=== PATIENT | female | born 1935 | race Caucasian/White ===

== ENCOUNTER → 2018-07-16 | Outpatient (CLI) | payer MEDICARE, BC ==
--- NOTE | 2018-07-16 08:19 | US ---
EXAMINATION TYPE: US liver DATE OF EXAM: 07/16/2018 COMPARISON: NONE CLINICAL HISTORY: R94.5 Abnormal Liver Function test; gallbladder removed EXAM MEASUREMENTS: Liver Length: 16.4 cm Gallbladder Wall: surgically removed CBD: 1.2 cm Right Kidney: 10.4 x 5.8 x 4.0 cm Pancreas: hyperechoic Liver: fatty as is hyperechoic to right renal cortex; prominent bile ducts seen in right lobe Gallbladder: surgically removed Evidence for sonographic Palacio's sign: no CBD: dilated greater than normal measure of 1.0cm post cholecystectomy and for 8th decade of life Right Kidney: No hydronephrosis or masses seen IMPRESSION: 1. Probable hepatic steatosis.
== END | disposition home or self-care (01) ==
LOC: RADUSWWP 07:30
PROVIDERS: ATTEND Internal Medicine
DX: R94.4 Abnormal results of kidney function studies (principal)
CPT/HCPCS: 76705

== ENCOUNTER 2018-09-19 17:46 | Inpatient (IN) | payer MEDICARE, BC ==
[2018-09-19] MEDS ORDERED: SODIUM CHLORIDE 0.9% 1,000 ML IV STA ×2 (18:29→18:30)
--- NOTE | 2018-09-19 18:37 | ED ---
Extremity Problem HPI - General Chief complaint: Extremity Problem,Nontraumatic Stated complaint: Rohan foot pain Time Seen by Provider: 09/19/18 18:00 Source: patient, RN notes reviewed Mode of arrival: EMS Limitations: no limitations - History of Present Illness Initial comments: This is a 83-year-old female history of gout who states she's been in bed for the past 7 days with inability weight-bear due to foot pain. She states she had similar episodes of this in the past. The denies any overt fevers chills or sweats she states her feet and ankles to feel warmer. He has complaints of pain to the left second toe she states she now also has pain to lateral right malleolus area. She denies any trauma. She believes it may be her gout though she's been told she could not have it on both sides. She denies any other symptoms at this time. MD Complaint: extremity pain - Related Data Home Medications Medication Instructions Recorded Confirmed Bisoprolol-Hctz 2.5-6.25 mg [Ziac 1 tab PO HS 12/12/14 09/19/18 2.5-6.25] Kelp 1 tab PO DAILY 12/12/14 09/19/18 Vitamin B Complex 1 cap PO DAILY 12/12/14 09/19/18 traMADol HCl [Ultram] 50 mg PO DAILY PRN 12/12/14 09/19/18 Calcium Carbonate/Vitamin D3 1 tab PO DAILY 12/19/15 09/19/18 [Calcium 600 + Vit D Tablet] Glucosam/Tk-Msm1/C/Fidel/Bosw 1 tab PO DAILY 12/19/15 09/19/18 [Glucosamine-Chondroitin Tablet] Multivit-Min/Iron/Folic/Lutein 1 tab PO DAILY 12/19/15 09/19/18 [Centrum Silver Women Tablet] Zinc 50 mg PO DAILY 12/19/15 09/19/18 Allopurinol [Zyloprim] 100 mg PO DAILY 09/19/18 09/19/18 Aspirin EC [Ecotrin Low Dose] 81 mg PO DAILY 09/19/18 09/19/18 Gabapentin [Neurontin] 100 mg PO BID 09/19/18 09/19/18 Magnesium 200 mg PO DAILY 09/19/18 09/19/18 [place]-3 Fatty Acids [[place]-3] 1,000 mg PO DAILY 09/19/18 09/19/18 Tumeric (Unknown Dose) 1 tab PO DAILY 09/19/18 09/19/18 Allergies Allergy/AdvReac Type Severity Reaction Status Date / Time codeine Allergy Chest Pain Verified 09/19/18 18:34 oxybutynin chloride Allergy Abdominal Verified 09/19/18 18:34 [From Ditropan] Pain Review of Systems ROS Statement: Those systems with pertinent positive or pertinent negative responses have been documented in the HPI. ROS Other: All systems not noted in ROS Statement are negative. Past Medical History Past Medical History: Diabetes Mellitus, Eye Disorder, GERD/Reflux, Hearing Disorder / Deafness, Hyperlipidemia, Hypertension, Memory Impairment, Musculoskeletal Disorder, Osteoarthritis (OA), Skin Disorder, Thyroid Disorder Additional Past Medical History / Comment(s): SOB W/ ACTIVITY. VERTIGO. MAC DEGENERATION. GOUT. borderline diabetic, NEUROPATHY FEET. GETS YEAST IN SKIN FOLDS OCC. History of Any Multi-Drug Resistant Organisms: None Reported Past Surgical History: Appendectomy, Cholecystectomy, Hysterectomy, Joint Replacement Additional Past Surgical History / Comment(s): ROHAN TOTAL KNEES replaced. HX SURG BREAST INFECTION, krista placed in right humerus Past Anesthesia/Blood Transfusion Reactions: No Reported Reaction, Motion Sickness Past Psychological History: No Psychological Hx Reported Smoking Status: Former smoker Past Alcohol Use History: Occasional, Rare Past Drug Use History: None Reported - Past Family History Mother Additional Family Medical History / Comment(s): "alcoholic", and stomach ulcers Sister(s) Family Medical History: AICD/Pacemaker, Blood Disorder, Deep Vein Thrombosis ( DVT) Additional Family Medical History / Comment(s): one sis has afib & blood clots, one other sis has blood clots as well Father Family Medical History: Cancer, Dementia General Exam - General Exam Comments Initial Comments: This is a well-developed well-nourished awake alert oriented history female Limitations: no limitations General appearance: alert, in no apparent distress Head exam: Present: atraumatic, normocephalic, normal inspection Eye exam: Present: normal appearance, PERRL, EOMI. Absent: scleral icterus, conjunctival injection, periorbital swelling ENT exam: Present: mucous membranes dry Neck exam: Present: normal inspection. Absent: tenderness, meningismus, lymphadenopathy Respiratory exam: Present: normal lung sounds bilaterally. Absent: respiratory distress, wheezes, rales, rhonchi, stridor Cardiovascular Exam: Present: regular rate, normal rhythm, normal heart sounds. Absent: systolic murmur, diastolic murmur, rubs, gallop, clicks GI/Abdominal exam: Present: soft, normal bowel sounds. Absent: distended, tenderness, guarding, rebound, rigid Extremities exam: Present: full ROM, tenderness, normal capillary refill, other (Examination left lower sternum he demonstrates some erythema and increased elevated temperature today dorsal aspect of the left foot also erythema seen over the great toe and second toe. No drainage seen anywhere. No lymphangitis. Examination right foot and ankle reveals tenderness and some erythema increased temperature to the lateral malleolus on the right. Crepitation or step-off.). Absent: pedal edema, joint swelling, calf tenderness Back exam: Present: normal inspection Neurological exam: Present: alert, oriented X3, CN II-XII intact Psychiatric exam: Present: normal affect, normal mood Skin exam: Present: warm, dry, intact, normal color. Absent: rash Course Vital Signs 09/19/18 09/19/18 09/19/18 17:52 19:35 21:08 Temperature 99.9 F H 100.1 F H Pulse Rate 93 93 Respiratory 18 18 18 Rate Blood Pressure 153/92 125/61 O2 Sat by Pulse 94 L 96 Oximetry Medical Decision Making - Medical Decision Making I did discuss the findings the patient family and with Dr. Mckeon. Patient will be admitted he will be placed on IV antibiotics and anti-inflammatories - Lab Data Result diagrams: 09/19/18 20:21 09/19/18 20:21 Lab Results 09/19/18 09/19/18 09/19/18 Range/Units 20:21 20:21 20:21 WBC 15.3 H (3.8-10.6) k/uL RBC 5.14 (3.80-5.40) m/uL Hgb 14.3 (11.4-16.0) gm/dL Hct 44.4 (34.0-46.0) % MCV 86.3 (80.0-100.0) fL MCH 27.9 (25.0-35.0) pg MCHC 32.3 (31.0-37.0) g/dL RDW 13.6 (11.5-15.5) % Plt Count 264 (150-450) k/uL Neutrophils % 83 % Lymphocytes % 8 % Monocytes % 6 % Eosinophils % 1 % Basophils % 0 % Neutrophils # 12.7 H (1.3-7.7) k/uL Lymphocytes # 1.3 (1.0-4.8) k/uL Monocytes # 1.0 (0-1.0) k/uL Eosinophils # 0.1 (0-0.7) k/uL Basophils # 0.1 (0-0.2) k/uL Sodium 138 (137-145) mmol/L Potassium 4.1 (3.5-5.1) mmol/L Chloride 100 (98-107) mmol/L Carbon Dioxide 28 (22-30) mmol/L Anion Gap 10 mmol/L BUN 24 H (7-17) mg/dL Creatinine 1.13 H (0.52-1.04) mg/dL Est GFR (CKD-EPI)AfAm 52 (>60 ml/min/1.73 sqM) Est GFR (CKD-EPI)NonAf 45 (>60 ml/min/1.73 sqM) Glucose 121 H (74-99) mg/dL Plasma Lactic Acid Tim 1.1 (0.7-2.0) mmol/L Uric Acid 6.4 (3.7-7.4) mg/dL Calcium 9.4 (8.4-10.2) mg/dL Magnesium 2.2 (1.6-2.3) mg/dL Total Bilirubin 1.7 H (0.2-1.3) mg/dL AST 60 H (14-36) U/L ALT 94 H (9-52) U/L Alkaline Phosphatase 88 (38-126) U/L Total Creatine Kinase (30-135) U/L CK-MB (CK-2) (0.0-2.4) ng/mL CK-MB (CK-2) Rel Index C-Reactive Protein 191.1 H (<10.0) mg/L Total Protein 7.0 (6.3-8.2) g/dL Albumin 3.8 (3.5-5.0) g/dL 09/19/18 Range/Units 20:21 WBC (3.8-10.6) k/uL RBC (3.80-5.40) m/uL Hgb (11.4-16.0) gm/dL Hct (34.0-46.0) % MCV (80.0-100.0) fL MCH (25.0-35.0) pg MCHC (31.0-37.0) g/dL RDW (11.5-15.5) % Plt Count (150-450) k/uL Neutrophils % % Lymphocytes % % Monocytes % % Eosinophils % % Basophils % % Neutrophils # (1.3-7.7) k/uL Lymphocytes # (1.0-4.8) k/uL Monocytes # (0-1.0) k/uL Eosinophils # (0-0.7) k/uL Basophils # (0-0.2) k/uL Sodium (137-145) mmol/L Potassium (3.5-5.1) mmol/L Chloride (98-107) mmol/L Carbon Dioxide (22-30) mmol/L Anion Gap mmol/L BUN (7-17) mg/dL Creatinine (0.52-1.04) mg/dL Est GFR (CKD-EPI)AfAm (>60 ml/min/1.73 sqM) Est GFR (CKD-EPI)NonAf (>60 ml/min/1.73 sqM) Glucose (74-99) mg/dL Plasma Lactic Acid Tim (0.7-2.0) mmol/L Uric Acid (3.7-7.4) mg/dL Calcium (8.4-10.2) mg/dL Magnesium (1.6-2.3) mg/dL Total Bilirubin (0.2-1.3) mg/dL AST (14-36) U/L ALT (9-52) U/L Alkaline Phosphatase (38-126) U/L Total Creatine Kinase 71 (30-135) U/L CK-MB (CK-2) 0.5 (0.0-2.4) ng/mL CK-MB (CK-2) Rel Index 0.7 C-Reactive Protein (<10.0) mg/L Total Protein (6.3-8.2) g/dL Albumin (3.5-5.0) g/dL - Radiology Data Radiology results: report reviewed (I did review the imaging and report no acute findings), image reviewed Disposition Clinical Impression: Cellulitis of right ankle, Foot pain, bilateral, Febrile illness, acute Disposition: ADMITTED IP TO THIS HOSP Condition: Serious Referrals: Danii Mckeon MD [Primary Care Provider] - 1-2 days
--- NOTE | 2018-09-19 19:54 | XR ---
EXAMINATION TYPE: XR foot limited bilateral DATE OF EXAM: 09/19/2018 COMPARISON: NONE HISTORY: Foot pain and swelling TECHNIQUE: 2 views each foot FINDINGS: There are bilateral plantar calcaneal spurs. There is left-sided Achilles calcaneal spurrin g. There is mild left-sided hallux valgus. Metatarsals are intact. There is spurring at the tarsometa tarsal joints bilaterally. IMPRESSION: Osteoarthritis. No fracture.
[2018-09-19 20:42] LABS: Basophils # (A) 0.1 k/uL (0-0.2); Basophils % (A) 0 %; Eosinophils # (A) 0.1 k/uL (0-0.7); Eosinophils % (A) 1 %; HCT 44.4 % (34.0-46.0); HGB 14.3 gm/dL (11.4-16.0); Lymphocytes # (A) 1.3 k/uL (1.0-4.8); Lymphocytes % (A) 8 %; MCH 27.9 pg (25.0-35.0); MCHC 32.3 g/dL (31.0-37.0); MCV 86.3 fL (80.0-100.0); Mean Platelet Volume 7.2; Monocytes % (A) 6 %; Neutrophils # (A) 12.7 k/uL (1.3-7.7); Neutrophils % (A) 83 %; Platelet Count 264 k/uL (150-450); RBC 5.14 m/uL (3.80-5.40); RDW 13.6 % (11.5-15.5); WBC 15.3 k/uL (3.8-10.6)
[2018-09-19 21:02] LABS: Albumin 3.8 g/dL (3.5-5.0); Calcium 9.4 mg/dL (8.4-10.2); Magnesium 2.2 mg/dL (1.6-2.3); Potassium 4.1 mmol/L (3.5-5.1); Total Bilirubin 1.7 mg/dL (0.2-1.3); Uric Acid 6.4 mg/dL (3.7-7.4)
[2018-09-19 21:11] LABS: Creatine Kinase MB 0.5 ng/mL (0.0-2.4)
[2018-09-19 21:15] LABS: C Reactive Protein 191.1 mg/L (<10.0)
[2018-09-19] MEDS ORDERED: ACETAMINOPHEN TAB 325 MG TAB PO PRN (21:50)
[2018-09-19] MEDS ORDERED: ONDANSETRON 4 MG/2 ML VIAL IVP PRN (21:50)
[2018-09-19] MEDS ORDERED: NALOXONE 0.4 MG/ML 1 ML VIAL IV PRN (21:50)
[2018-09-19] MEDS ORDERED: VANCOMYCIN IV PER PHARMACY 1 EACH MISC MISCELLANE PRN (21:55)
[2018-09-19] MEDS ORDERED: VANCOMYCIN 1,500 MG in SODIUM CHLORIDE 0.9% 250 ML IVPB SCH (23:15)
[2018-09-20] MEDS: PIPERACILLIN-TAZOBACTAM 3.375 GM in SODIUM CHLORIDE 0.9% 100 ML IVPB SCH ×3 (01:00→16:30)
[2018-09-20] MEDS: HYDROmorphone 1 MG/ML 1 ML SYRINGE IVP PRN ×5 (02:04→22:56)
[2018-09-20 08:08] LABS: Basophils # (A) 0.1 k/uL (0-0.2); Basophils % (A) 1 %; Eosinophils # (A) 0.1 k/uL (0-0.7); Eosinophils % (A) 1 %; HCT 40.4 % (34.0-46.0); HGB 13.1 gm/dL (11.4-16.0); Lymphocytes # (A) 1.4 k/uL (1.0-4.8); Lymphocytes % (A) 13 %; MCHC 32.3 g/dL (31.0-37.0); MCV 86.5 fL (80.0-100.0); Monocytes # (A) 0.9 k/uL (0-1.0); Monocytes % (A) 8 %; Neutrophils # (A) 8.1 k/uL (1.3-7.7); Neutrophils % (A) 76 %; Platelet Count 232 k/uL (150-450); RBC 4.67 m/uL (3.80-5.40); RDW 13.4 % (11.5-15.5); WBC 10.7 k/uL (3.8-10.6)
[2018-09-20 08:52] LABS: Albumin 3.1 g/dL (3.5-5.0); Calcium 8.9 mg/dL (8.4-10.2); Potassium 4.3 mmol/L (3.5-5.1); Total Bilirubin 2.2 mg/dL (0.2-1.3); Total Protein 6.1 g/dL (6.3-8.2)
[2018-09-20] MEDS ORDERED: FAMOTIDINE 20 MG TAB PO SCH (09:00)
[2018-09-20] MEDS ORDERED: ALLOPURINOL 100 MG TAB PO SCH (09:00)
[2018-09-20] MEDS ORDERED: NON-FORMULARY DRUG (Omega-3 Fatty Acids [Omega-3] 1,000 MG) PO SCH (09:00)
[2018-09-20] MEDS ORDERED: NON-FORMULARY DRUG (Vitamin B Complex [Vitamin B Complex] 1 CAP) PO SCH (09:00)
[2018-09-20] MEDS: ASPIRIN 81 MG PO SCH (09:07)
[2018-09-20] MEDS: HEPARIN SODIUM,PORCINE 5,000 UNIT/ML 1 ML VIAL SQ SCH ×2 (09:07→21:07)
[2018-09-20] MEDS: GABAPENTIN 100 MG CAP PO SCH ×2 (09:07→21:07)
[2018-09-20] MEDS: MULTIVITAMINS, THERA 1 EACH TAB PO SCH (09:08)
[2018-09-20] MEDS: ZINC SULFATE 220 MG CAP PO SCH (09:08)
[2018-09-20] MEDS: CALCIUM CARB-VIT D 500MG-200UN 1 EACH TAB PO SCH (09:08)
[2018-09-20] MEDS: MAGNESIUM OXIDE 400 MG TAB PO SCH (09:08)
--- NOTE | 2018-09-20 10:29 | P.HPIM ---
History of Present Illness H&P Date: 09/20/18 This is a 83-year-old female patient presented to the hospital with complaints of bilateral feet swelling redness and pain. Patient reports pain originally started approximately 7 days ago and was in second toe on left foot over the the past 7 days spread to both feet making patient unable to tolerate weightbearing activity. Patient does reports she's had similar episode approximately 3 years ago that she believed was related to gout. Patient was told by her PCP this was likely not gout and more of a neuropathy episode at that time due to bilateral feet involvement. Patient denies any fevers or chills. Patient has past medical history of macular degeneration, GERD, hearing disorder, hyperlipidemia, hypertension, memory impairment, musculoskeletal disorder, osteoarthritis, thyroid disorder and neuropathy. Patient also reports she was told she was borderline diabetic. Patient currently not on any diabetes medication. Will order hemoglobin A1c. Foot x- ray completed showing osteoarthritis. No fracture. At this time will order venous Doppler study to rule out DVT. Patient started on Vanco and Zosyn for IV antibiotics. Infectious disease will be consulted. White blood cell is trending down. We'll consult physical therapy and social work for discharge planning due to increased weakness and immobility at home. At this time patient denies chest pain or shortness of breath. Patient denies nausea vomiting or diarrhea. Patient denies any urinary burning or frequency. Review of Systems Please refer to HPI otherwise unremarkable Past Medical History Past Medical History: Eye Disorder, GERD/Reflux, Hearing Disorder / Deafness, Hyperlipidemia, Hypertension, Memory Impairment, Musculoskeletal Disorder, Osteoarthritis (OA), Skin Disorder, Thyroid Disorder Additional Past Medical History / Comment(s): SOB W/ ACTIVITY. VERTIGO. MAC DEGENERATION. GOUT. borderline diabetic, NEUROPATHY FEET. GETS YEAST IN SKIN FOLDS OCC. History of Any Multi-Drug Resistant Organisms: None Reported Past Surgical History: Appendectomy, Cholecystectomy, Hysterectomy, Joint Replacement Additional Past Surgical History / Comment(s): ROHAN TOTAL KNEES replaced. HX SURG BREAST INFECTION, krista placed in right humerus Past Anesthesia/Blood Transfusion Reactions: No Reported Reaction, Motion Sickness Past Psychological History: No Psychological Hx Reported Smoking Status: Former smoker Past Alcohol Use History: Occasional, Rare Past Drug Use History: None Reported - Past Family History Mother Additional Family Medical History / Comment(s): "alcoholic", and stomach ulcers Sister(s) Family Medical History: AICD/Pacemaker, Blood Disorder, Deep Vein Thrombosis ( DVT) Additional Family Medical History / Comment(s): one sis has afib & blood clots, one other sis has blood clots as well Father Family Medical History: Cancer, Dementia Medications and Allergies Home Medications Medication Instructions Recorded Confirmed Type Bisoprolol-Hctz 2.5-6.25 mg [Ziac 1 tab PO HS 12/12/14 09/19/18 History 2.5-6.25] Kelp 1 tab PO DAILY 12/12/14 09/19/18 History Vitamin B Complex 1 cap PO DAILY 12/12/14 09/19/18 History traMADol HCl [Ultram] 50 - 100 mg PO QID PRN 12/12/14 09/20/18 History Calcium Carbonate/Vitamin D3 1 tab PO DAILY 12/19/15 09/19/18 History [Calcium 600 + Vit D Tablet] Glucosam/Tk-Msm1/C/Fidel/Bosw 1 tab PO DAILY 12/19/15 09/19/18 History [Glucosamine-Chondroitin Tablet] Multivit-Min/Iron/Folic/Lutein 1 tab PO DAILY 12/19/15 09/19/18 History [Centrum Silver Women Tablet] Zinc 50 mg PO DAILY 12/19/15 09/19/18 History Allopurinol [Zyloprim] 100 mg PO DAILY 09/19/18 09/19/18 History Aspirin EC [Ecotrin Low Dose] 81 mg PO DAILY 09/19/18 09/19/18 History Gabapentin [Neurontin] 100 mg PO BID 09/19/18 09/19/18 History Magnesium 200 mg PO DAILY 09/19/18 09/19/18 History [place]-3 Fatty Acids [[place]-3] 1,000 mg PO DAILY 09/19/18 09/19/18 History Tumeric (Unknown Dose) 1 tab PO DAILY 09/19/18 09/19/18 History Allergies Allergy/AdvReac Type Severity Reaction Status Date / Time codeine Allergy Chest Pain Verified 09/19/18 18:34 oxybutynin chloride Allergy Abdominal Verified 09/19/18 18:34 [From Ditropan] Pain Physical Exam Vitals: Vital Signs Temp Pulse Pulse Resp BP BP Pulse Ox 09/20/18 05:26 97.5 F L 75 18 126/75 93 L 09/19/18 23:00 99.1 F 96 18 139/73 93 L 09/19/18 22:50 18 09/19/18 21:08 100.1 F H 93 18 125/61 96 09/19/18 19:35 18 09/19/18 17:52 99.9 F H 93 18 153/92 94 L Intake and Output 09/19/18 09/20/18 09/20/18 22:59 06:59 14:59 Intake Total 650 Balance 650 Intake: Intake, IV Titration 650 Amount Piperacillin-Tazobactam 3 100 .375 gm In Sodium Chloride 0.9% 100 ml @ 25 mls/hr IVPB Q8HR GHADA Rx# :[id number] Sodium Chloride 0.9% 1, 300 000 ml @ 75 mls/hr IV . [id number] STA Rx#:[id number] Vancomycin 1,500 mg In 250 Sodium Chloride 0.9% 250 ml @ 125 mls/hr IVPB Q24H GHADA Rx#:[id number] Other: Voiding Method Bedpan # Voids 1 Weight 90.718 kg Head normocephalic Neck supple Lungs clear to auscultation bilaterally no wheezing or crackles Heart regular rate and rhythm S1-S2, no rub or gallop Abdomen is soft nontender nondistended positive bowel sounds no hepatosplenomegaly Extremities +2 pedal edema with erythema Neuro alert and orientated to 3 Results CBC & Chem 7: 09/20/18 07:21 09/20/18 07:21 Labs: Abnormal Lab Results - Last 24 Hours (Table) 09/19/18 09/19/18 09/20/18 Range/Units 20:21 20:21 07:21 WBC 15.3 H 10.7 H (3.8-10.6) k/uL Neutrophils # 12.7 H 8.1 H (1.3-7.7) k/uL BUN 24 H (7-17) mg/dL Creatinine 1.13 H (0.52-1.04) mg/dL Glucose 121 H (74-99) mg/dL Total Bilirubin 1.7 H (0.2-1.3) mg/dL AST 60 H (14-36) U/L ALT 94 H (9-52) U/L C-Reactive Protein 191.1 H (<10.0) mg/L Total Protein (6.3-8.2) g/dL Albumin (3.5-5.0) g/dL 09/20/18 Range/Units 07:21 WBC (3.8-10.6) k/uL Neutrophils # (1.3-7.7) k/uL BUN 22 H (7-17) mg/dL Creatinine (0.52-1.04) mg/dL Glucose 118 H (74-99) mg/dL Total Bilirubin 2.2 H (0.2-1.3) mg/dL AST 141 H (14-36) U/L ALT 135 H (9-52) U/L C-Reactive Protein (<10.0) mg/L Total Protein 6.1 L (6.3-8.2) g/dL Albumin 3.1 L (3.5-5.0) g/dL Thrombosis Risk Factor Assmnt - Choose All That Apply Any of the Below Risk Factors Present?: Yes Each Factor Represents 1 point: Obesity (BMI >25) Other Risk Factors: Yes Each Risk Factor Represents 3 Points: Age 75 years or older Thrombosis Risk Factor Assessment Total Risk Factor Score: 4 Thrombosis Risk Factor Assessment Level: Moderate Risk Assessment and Plan Assessment: 1. Bilateral lower extremity erythema and edema. Foot x-ray completed showing osteoarthritis. No fracture. White blood cell elevated at 15.3. Patient started on IV vancomycin and Zosyn. Infectious disease will be consulted. Blood culture ordered. Venous Doppler to rule out DVT has been ordered. 2. Borderline diabetic. Patient currently not on any diabetes medication. Will order hemoglobin A1c. In place patient on sliding scale insulin coverage 3. History of hyperlipidemia 4. History of essential hypertension 5. History of macular degeneration 6. History of memory impairment 7. History of osteoarthritis 8. Increased weakness. Will consult physical therapy and social work professor discharge planning 9. Elevated liver enzymes. AST 141, ALT 135 and total bili 2.2. Acetaminophen DC'd. We'll continue to monitor closely DVT prophylaxis heparin. GI prophylaxis Protonix Time with Patient: Greater than 30 (Greater than 60% of the total time spent in counseling and coordination of care. I performed an examination of the patient and discussed their management with the Nurse Practitioner. I have reviewed the Nurse Practitioner's notes and agree with the documented findings and plan of care)
[2018-09-20 11:12] LABS: Glucose,Whole Blood 132 mg/dL (75-99)
--- NOTE | 2018-09-20 11:17 | US ---
EXAMINATION TYPE: US venous doppler duplex LE DATE OF EXAM: 09/20/2018 11:05 AM COMPARISON: NONE CLINICAL HISTORY: r/o DVT. bilateral foot pain and edema SIDE PERFORMED: bilateral TECHNIQUE: The lower extremity deep venous system is examined utilizing real time linear array sonog mesha with graded compression, doppler sonography and color-flow sonography. VESSELS IMAGED: External Iliac Vein (EIV) Common Femoral Vein Deep Femoral Vein Greater Saphenous Vein * Femoral Vein Popliteal Vein Small Saphenous Vein * Proximal Calf Veins (* superficial vessels) Right Leg: No evidence of DVT as visualized Left Leg: No evidence of DVT as visualized IMPRESSION: 1. No diagnostic evidence of DVT as visualized.
[2018-09-20] MEDS: INSULIN ASPART (NovoLOG) 100 UNIT/ML VIAL SQ SCH ×3 (13:29→21:07)
[2018-09-20 17:03] LABS: Glucose,Whole Blood 141 mg/dL (75-99)
[2018-09-20 17:39] LABS: Hemoglobin A1C 6.2 % (4.0-6.0)
[2018-09-20 20:29] LABS: Glucose,Whole Blood 176 mg/dL (75-99)
[2018-09-20] MEDS ORDERED: ACETAMINOPHEN TAB 500 MG TAB PO PRN (20:42)
[2018-09-20] MEDS: DOCUSATE 100 MG CAP PO SCH (21:06)
[2018-09-20] MEDS: BISOPROLOL-HCTZ 2.5-6.25 MG 1 EACH TAB PO SCH (21:06)
[2018-09-20 23:10] LABS: Hepatitis A Antibody IgM Non-Reactive (Non-Reactive); Hepatitis B Core IgM Non-Reactive (Non-Reactive)
[2018-09-21] MEDS ORDERED: VANCOMYCIN 1,500 MG in SODIUM CHLORIDE 0.9% 250 ML IVPB SCH ×2
[2018-09-21] MEDS: ceFAZolin IN SWFI 2 GM/20 ML SYRINGE IVP SCH ×4 (00:04→23:29)
[2018-09-21] MEDS: COLCHICINE 0.6 MG EACH PO SCH ×3 (00:04→21:21)
[2018-09-21 07:02] LABS: Glucose,Whole Blood 152 mg/dL (75-99)
--- NOTE | 2018-09-21 08:47 | US ---
EXAMINATION TYPE: US liver DATE OF EXAM: 09/21/2018 COMPARISON: NONE CLINICAL HISTORY: elevated for liver enzymes. no symptoms, cholecystectomy EXAM MEASUREMENTS: Liver Length: 19.2 cm Gallbladder Wall: Surgically absent CBD: 1.3 cm Right Kidney: 10.2 x 4.7 x 4.6 cm Pancreas: limited views Liver: very difficult to penetrate and the liver echotexture is coarse Gallbladder: Surgically absent Evidence for sonographic Palacio's sign: no CBD: dilated with no obvious signs of obstruction Right Kidney: wnl There is no ascites. Right kidney shows normal cortical medullary differentiation. IMPRESSION: Exam is limited. Probable hepatic steatosis, hepatomegaly. Biliary dilation possibly due to postcholecystectomy change
[2018-09-21] MEDS: ZINC SULFATE 220 MG CAP PO SCH (08:58)
[2018-09-21] MEDS: ASPIRIN 81 MG PO SCH (08:58)
[2018-09-21] MEDS: PANTOPRAZOLE 40 MG TABLET PO SCH (08:58)
[2018-09-21] MEDS: DOCUSATE 100 MG CAP PO SCH ×2 (08:58→21:21)
[2018-09-21] MEDS: GABAPENTIN 100 MG CAP PO SCH ×2 (08:58→21:21)
[2018-09-21] MEDS: HEPARIN SODIUM,PORCINE 5,000 UNIT/ML 1 ML VIAL SQ SCH ×2 (08:58→21:22)
[2018-09-21] MEDS: INSULIN ASPART (NovoLOG) 100 UNIT/ML VIAL SQ SCH ×4 (08:59→21:21)
[2018-09-21 09:14] LABS: Basophils # (A) 0.1 k/uL (0-0.2); Basophils % (A) 1 %; Eosinophils # (A) 0.1 k/uL (0-0.7); Eosinophils % (A) 1 %; HCT 42.3 % (34.0-46.0); HGB 13.5 gm/dL (11.4-16.0); Lymphocytes # (A) 1.7 k/uL (1.0-4.8); Lymphocytes % (A) 12 %; MCH 27.2 pg (25.0-35.0); MCHC 31.8 g/dL (31.0-37.0); MCV 85.5 fL (80.0-100.0); Mean Platelet Volume 7.4; Monocytes # (A) 0.8 k/uL (0-1.0); Monocytes % (A) 6 %; Neutrophils # (A) 10.6 k/uL (1.3-7.7); Neutrophils % (A) 79 %; Platelet Count 287 k/uL (150-450); RBC 4.95 m/uL (3.80-5.40); RDW 13.6 % (11.5-15.5); WBC 13.4 k/uL (3.8-10.6)
[2018-09-21 09:21] LABS: Albumin 3.4 g/dL (3.5-5.0); Calcium 9.6 mg/dL (8.4-10.2); Potassium 4.1 mmol/L (3.5-5.1); Total Bilirubin 1.1 mg/dL (0.2-1.3); Total Protein 6.5 g/dL (6.3-8.2)
[2018-09-21] MEDS: HYDROmorphone 1 MG/ML 1 ML SYRINGE IVP PRN ×3 (09:21→17:36)
[2018-09-21 11:09] LABS: Glucose,Whole Blood 168 mg/dL (75-99)
--- NOTE | 2018-09-21 12:26 | P.CONS ---
History of Present Illness - Reason for Consult Consult date: 09/21/18 elevated liver enzymes Requesting physician: Danii Mckeon - Chief Complaint foot pain - History of Present Illness 83 y/o female history of cholecystectomy 20 years ago possible cholelithiasis, known nonalcoholic fatty liver disease, hypertension, borderline diabetes, hyperlipidemia, obesity, admitted with bilateral foot pain x several days with cellulitis T-max 100.6. Bilateral lower extremity ultrasound negative for DVT. Foot x-ray osteoarthritis no fracture. Consult requested for elevated liver enzymes. No changes in medications. No recent antibiotics. Denies abdominal pain. No history of EtOH abuse. Denies jaundice or acholic stools. Admission total bilirubin 1.7. AST 60. ALT 94. AP 88. Current LFTs total bilirubin 1.1. AST 109. ALT 141. AP 107. Hepatitis screen nonreactive. No recent liver chemistries to compare LFTs in 2015 were within normal limits. Ultrasound liver possible hepatic steatosis. Liver length 19.2 cm. CBD 1.3 cm possibly due to postcholecystectomy change. Review of Systems Constitutional: Denies fever, chills, sweats, weight gain, or loss. HEENT: Negative for migraines, blurred vision or loss, earaches, drainage, tinnitus, oral mucosal lesions, dysphagia, or odynophagia. CARDIAC: Negative for chest pain, arrhythmias, or palpitation. RESPIRATORY: Negative for shortness of breath, hemoptysis, cough, or sputum production. GI: See HPI for pertinent findings. : Negative for hematuria, urgency, frequency, polyuria, or dysuria. GYNc: Negative vaginal discharge. MUSCULOSKELETAL: Right foot pain. Negative for muscle aches, swelling, arthritis, and arthralgias. NEUROLOGIC: Negative for stroke or TIA. ENDOCRINE: Negative for thyroid problems. SKIN: Negative for rash or itching. PSYCHIATRIC: Negative history for depression and anxiety Past Medical History Past Medical History: Eye Disorder, GERD/Reflux, Hearing Disorder / Deafness, Hyperlipidemia, Hypertension, Memory Impairment, Musculoskeletal Disorder, Osteoarthritis (OA), Skin Disorder, Thyroid Disorder Additional Past Medical History / Comment(s): SOB W/ ACTIVITY. VERTIGO. MAC DEGENERATION. GOUT. borderline diabetic, NEUROPATHY FEET. GETS YEAST IN SKIN FOLDS OCC. History of Any Multi-Drug Resistant Organisms: None Reported Past Surgical History: Appendectomy, Cholecystectomy, Hysterectomy, Joint Replacement Additional Past Surgical History / Comment(s): ROHAN TOTAL KNEES replaced. HX SURG BREAST INFECTION, krista placed in right humerus Past Anesthesia/Blood Transfusion Reactions: No Reported Reaction, Motion Sickness Past Psychological History: No Psychological Hx Reported Smoking Status: Former smoker Past Alcohol Use History: Occasional, Rare Past Drug Use History: None Reported - Past Family History Mother Additional Family Medical History / Comment(s): "alcoholic", and stomach ulcers Sister(s) Family Medical History: AICD/Pacemaker, Blood Disorder, Deep Vein Thrombosis ( DVT) Additional Family Medical History / Comment(s): one sis has afib & blood clots, one other sis has blood clots as well Father Family Medical History: Cancer, Dementia Medications and Allergies Home Medications Medication Instructions Recorded Confirmed Type Bisoprolol-Hctz 2.5-6.25 mg [Ziac 1 tab PO HS 12/12/14 09/19/18 History 2.5-6.25] Kelp 1 tab PO DAILY 12/12/14 09/19/18 History Vitamin B Complex 1 cap PO DAILY 12/12/14 09/19/18 History traMADol HCl [Ultram] 50 - 100 mg PO QID PRN 12/12/14 09/20/18 History Calcium Carbonate/Vitamin D3 1 tab PO DAILY 12/19/15 09/19/18 History [Calcium 600 + Vit D Tablet] Glucosam/Tk-Msm1/C/Fidel/Bosw 1 tab PO DAILY 12/19/15 09/19/18 History [Glucosamine-Chondroitin Tablet] Multivit-Min/Iron/Folic/Lutein 1 tab PO DAILY 12/19/15 09/19/18 History [Centrum Silver Women Tablet] Zinc 50 mg PO DAILY 12/19/15 09/19/18 History Allopurinol [Zyloprim] 100 mg PO DAILY 09/19/18 09/19/18 History Aspirin EC [Ecotrin Low Dose] 81 mg PO DAILY 09/19/18 09/19/18 History Gabapentin [Neurontin] 100 mg PO BID 09/19/18 09/19/18 History Magnesium 200 mg PO DAILY 09/19/18 09/19/18 History [place]-3 Fatty Acids [[place]-3] 1,000 mg PO DAILY 09/19/18 09/19/18 History Tumeric (Unknown Dose) 1 tab PO DAILY 09/19/18 09/19/18 History Allergies Allergy/AdvReac Type Severity Reaction Status Date / Time codeine Allergy Chest Pain Verified 09/19/18 18:34 oxybutynin chloride Allergy Abdominal Verified 09/19/18 18:34 [From Ditropan] Pain Physical Exam Vitals: Vital Signs Temp Pulse Resp BP Pulse Ox 09/21/18 05:00 98.4 F 88 18 166/79 95 09/20/18 21:53 99.2 F 09/20/18 21:00 100.6 F H 100 18 146/66 95 Intake and Output 09/20/18 09/21/18 09/21/18 22:59 06:59 14:59 Intake Total 525 Balance 525 Intake: Intake, IV Titration 300 Amount Sodium Chloride 0.9% 1, 300 000 ml @ 75 mls/hr IV . [id number] [facility] Rx#:[id number] Oral 225 Other: Voiding Method Bedpan Bedpan # Voids 1 2 General appearance: The patient is alert, oriented, in no acute distress. HET: Head is normocephalic and atraumatic. Pupils are equal and reactive. Oropharynx is clear without lesions. Neck: Supple without lymphadenopathy. Trachea midline. Heart: S1 S2. Regular rate and rhythm. Lungs: No crackles or wheezes are heard. Abdomen: Soft, nontender, nondistended with bowel sounds. No peritoneal signs. No palpable organomegaly or masses. Extremities: Bilateral lower extremity foot erythema. Normal skin color and turgor. No cyanosis, rash, ulceration, clubbing, or edema. Radial and pedal pulses are 2/4 bilaterally. Neurological: No focal deficits. Strength and sensation are grossly intact. Results CBC & Chem 7: 09/21/18 08:43 09/21/18 08:43 Labs: Abnormal Lab Results - Last 24 Hours (Table) 09/20/18 09/20/18 09/20/18 Range/Units 07:21 17:01 20:27 WBC (3.8-10.6) k/uL Neutrophils # (1.3-7.7) k/uL Glucose (74-99) mg/dL POC Glucose (mg/dL) 141 H 176 H (75-99) mg/dL Hemoglobin A1c 6.2 H (4.0-6.0) % AST (14-36) U/L ALT (9-52) U/L Albumin (3.5-5.0) g/dL 09/21/18 09/21/18 09/21/18 Range/Units 07:01 08:43 08:43 WBC 13.4 H (3.8-10.6) k/uL Neutrophils # 10.6 H (1.3-7.7) k/uL Glucose 134 H (74-99) mg/dL POC Glucose (mg/dL) 152 H (75-99) mg/dL Hemoglobin A1c (4.0-6.0) % AST 109 H (14-36) U/L ALT 141 H (9-52) U/L Albumin 3.4 L (3.5-5.0) g/dL 09/21/18 Range/Units 11:08 WBC (3.8-10.6) k/uL Neutrophils # (1.3-7.7) k/uL Glucose (74-99) mg/dL POC Glucose (mg/dL) 168 H (75-99) mg/dL Hemoglobin A1c (4.0-6.0) % AST (14-36) U/L ALT (9-52) U/L Albumin (3.5-5.0) g/dL Microbiology - Last 24 Hours (Table) 09/19/18 19:16 Blood Culture - Preliminary Blood No Growth after 24 hours US - abdomen: report reviewed (Dr. Barrow) Assessment and Plan (1) Transaminitis Narrative/Plan: 83-year-old admitted with bilateral foot pain erythema cellulitis with transaminitis clinically improving with underlying history of nonalcoholic fatty liver disease hepatic steatosis. Current Visit: Yes Status: Acute Code(s): R74.0 - NONSPEC ELEV OF LEVELS OF TRANSAMNS & LACTIC ACID DEHYDRGNSE SNOMED Code(s): 960345728 (2) Nonalcoholic fatty liver disease Current Visit: Yes Status: Acute Code(s): K76.0 - FATTY (CHANGE OF) LIVER, NOT ELSEWHERE CLASSIFIED SNOMED Code(s): 401264731 (3) Hepatic steatosis Current Visit: Yes Status: Acute Code(s): K76.0 - FATTY (CHANGE OF) LIVER, NOT ELSEWHERE CLASSIFIED SNOMED Code(s): 539555736 Plan: 1. Transaminases improving. Continue with daily CMP. We'll continue to follow with you. Thank you for this kind referral and the opportunity to participate in the care of your patient. This consultation was discussed with Dr. Barrow. The impression and plan of care have been directed as dictated.
[2018-09-21] MEDS: MULTIVITAMINS, THERA 1 EACH TAB PO SCH (12:44)
[2018-09-21] MEDS: CALCIUM CARB-VIT D 500MG-200UN 1 EACH TAB PO SCH (12:44)
[2018-09-21] MEDS: MAGNESIUM OXIDE 400 MG TAB PO SCH (12:45)
--- NOTE | 2018-09-21 13:25 | P.PN ---
Subjective Progress Note Date: 09/21/18 This is a 83-year-old female patient presented to the hospital with complaints of bilateral feet swelling redness and pain. Patient reports pain originally started approximately 7 days ago and was in second toe on left foot over the the past 7 days spread to both feet making patient unable to tolerate weightbearing activity. Patient does reports she's had similar episode approximately 3 years ago that she believed was related to gout. Patient was told by her PCP this was likely not gout and more of a neuropathy episode at that time due to bilateral feet involvement. Patient denies any fevers or chills. Patient has past medical history of macular degeneration, GERD, hearing disorder, hyperlipidemia, hypertension, memory impairment, musculoskeletal disorder, osteoarthritis, thyroid disorder and neuropathy. Patient also reports she was told she was borderline diabetic. Patient currently not on any diabetes medication. Will order hemoglobin A1c. Foot x- ray completed showing osteoarthritis. No fracture. At this time will order venous Doppler study to rule out DVT. Patient started on Vanco and Zosyn for IV antibiotics. Infectious disease will be consulted. White blood cell is trending down. We'll consult physical therapy and social work for discharge planning due to increased weakness and immobility at home. At this time patient denies chest pain or shortness of breath. Patient denies nausea vomiting or diarrhea. Patient denies any urinary burning or frequency. On 09/21/2018 patient is currently resting in bed. Patient states she is still having significant discomfort to bilateral lower feet. Patient did have a low- grade temp of 100.6. Infectious disease is following. Patient is on Kefzol per ID. this time patient denies chest pain or shortness breath. Patient denies nausea, diarrhea. Patient denies any urinary burning or frequency. Objective - Vital Signs Vital signs: Vital Signs Temp 99.2 F 09/21/18 12:58 Pulse 84 09/21/18 12:58 Resp 16 09/21/18 12:58 BP 136/76 09/21/18 12:58 Pulse Ox 96 09/21/18 12:58 Intake & Output 09/20/18 09/21/18 09/21/18 18:59 06:59 18:59 Intake Total 100 525 Balance 100 525 Intake: Intake, IV Titration 100 300 Amount Piperacillin-Tazobactam 3 100 .375 gm In Sodium Chloride 0.9% 100 ml @ 25 mls/hr IVPB Q8HR [facility] Rx# :[id number] Sodium Chloride 0.9% 1, 300 000 ml @ 75 mls/hr IV . [id number] [facility] Rx#:[id number] Oral 225 Other: Voiding Method Bedpan Bedside Commode Bedpan # Voids 2 - Exam Head normocephalic Neck supple Lungs clear to auscultation bilaterally no wheezing or crackles Heart regular rate and rhythm S1-S2, no rub or gallop Abdomen is soft nontender nondistended positive bowel sounds no hepatosplenomegaly Extremities +2 pedal edema with erythema Neuro alert and orientated to 3 - Labs CBC & Chem 7: 09/21/18 08:43 09/21/18 08:43 Labs: Abnormal Lab Results - Last 24 Hours (Table) 09/20/18 09/20/18 09/20/18 Range/Units 07:21 17:01 20:27 WBC (3.8-10.6) k/uL Neutrophils # (1.3-7.7) k/uL Glucose (74-99) mg/dL POC Glucose (mg/dL) 141 H 176 H (75-99) mg/dL Hemoglobin A1c 6.2 H (4.0-6.0) % AST (14-36) U/L ALT (9-52) U/L Albumin (3.5-5.0) g/dL 09/21/18 09/21/18 09/21/18 Range/Units 07:01 08:43 08:43 WBC 13.4 H (3.8-10.6) k/uL Neutrophils # 10.6 H (1.3-7.7) k/uL Glucose 134 H (74-99) mg/dL POC Glucose (mg/dL) 152 H (75-99) mg/dL Hemoglobin A1c (4.0-6.0) % AST 109 H (14-36) U/L ALT 141 H (9-52) U/L Albumin 3.4 L (3.5-5.0) g/dL 09/21/18 Range/Units 11:08 WBC (3.8-10.6) k/uL Neutrophils # (1.3-7.7) k/uL Glucose (74-99) mg/dL POC Glucose (mg/dL) 168 H (75-99) mg/dL Hemoglobin A1c (4.0-6.0) % AST (14-36) U/L ALT (9-52) U/L Albumin (3.5-5.0) g/dL Microbiology - Last 24 Hours (Table) 09/19/18 19:16 Blood Culture - Preliminary Blood No Growth after 24 hours Assessment and Plan Assessment: 1. Bilateral lower extremity erythema and edema. Foot x-ray completed showing osteoarthritis. No fracture. White blood cell elevated at 15.3. Patient started on IV vancomycin and Zosyn. Blood culture ordered. Venous Doppler completed showing no diagnostic evidence of DVT. Per infectious disease antibiotic has been changed to kefzol. Orthopedic services were also be consulted for possible gout and aspiration of right ankle per ID. Patient having low-grade temps. White count remains elevated at 13.4 2. Borderline diabetic. Patient currently not on any diabetes medication. Hemoglobin A1c 6.2. In place patient on sliding scale insulin coverage 3. History of hyperlipidemia 4. History of essential hypertension 5. History of macular degeneration 6. History of memory impairment 7. History of osteoarthritis 8. Increased weakness. Will consult physical therapy and psychosocial rehabilitation counselor discharge planning 9. Elevated liver enzymes. AST 141, ALT 135 and total bili 2.2. Acetaminophen DC'd. Her ultrasound completed showing probable hepatic steatosis , hepatomegaly. Biliary dilation possibly due to postcholecytectomy change. DVT prophylaxis heparin. GI prophylaxis Protonix
--- NOTE | 2018-09-21 14:25 | PN ---
PROGRESS NOTE DATE OF SERVICE: 09/21/2018 REASON FOR FOLLOWUP: Bilateral lateral ankle cellulitis with question of gouty arthritis. INTERVAL HISTORY: The patient fever has resolved. The patient pain has slightly decreased in intensity, however, still complaining of unable to walk. Denies having any chest pain, shortness of breath or cough. No abdominal pain, no diarrhea. PHYSICAL EXAMINATION: Blood pressure 138/70 with a pulse of 84, temperature 99.2, she is 96% on room air. General description is an elderly female up in the room in no distress. RESPIRATORY SYSTEM: Unlabored breathing, clear to auscultation anteriorly. HEART: S1, S2. Regular rate and rhythm. ABDOMEN: Soft, no tenderness. Bilateral lateral ankle area swelling persisted and slightly decreased. LABS: Hemoglobin 13.5, white count of 13.4, BUN of 17, creatinine 0.96. Blood cultures have been negative. DIAGNOSTIC IMPRESSION AND PLAN: Patient with bilateral lateral ankle area cellulitis with question of possible gouty arthritis, recommending Ortho evaluation, possible aspirate of the area. will be sent for the culture as well as the blister. She is on cefazolin and colchicine to continue for now. Family present at bedside. Their questions were answered. MMODL / IJN: [id number] /
[2018-09-21 17:14] LABS: Glucose,Whole Blood 128 mg/dL (75-99)
[2018-09-21] MEDS: methylPREDNISolone SOD SUCCI 125 MG/2 ML VIAL IV SCH ×2 (17:47→23:29)
[2018-09-21 20:21] LABS: Glucose,Whole Blood 203 mg/dL (75-99)
[2018-09-21] MEDS: BISOPROLOL-HCTZ 2.5-6.25 MG 1 EACH TAB PO SCH (21:21)
[2018-09-22 05:35] VITALS: PULSE 80
[2018-09-22 07:09] LABS: Glucose,Whole Blood 193 mg/dL (75-99)
[2018-09-22] MEDS: PANTOPRAZOLE 40 MG TABLET PO SCH (07:58)
[2018-09-22] MEDS: ceFAZolin IN SWFI 2 GM/20 ML SYRINGE IVP SCH (07:58)
[2018-09-22] MEDS: INSULIN ASPART (NovoLOG) 100 UNIT/ML VIAL SQ SCH ×2 (07:58→12:52)
[2018-09-22] MEDS: methylPREDNISolone SOD SUCCI 125 MG/2 ML VIAL IV SCH (07:59)
[2018-09-22] MEDS: COLCHICINE 0.6 MG EACH PO SCH (08:00)
[2018-09-22] MEDS: ASPIRIN 81 MG PO SCH (08:00)
[2018-09-22] MEDS: ZINC SULFATE 220 MG CAP PO SCH (08:01)
[2018-09-22] MEDS: HEPARIN SODIUM,PORCINE 5,000 UNIT/ML 1 ML VIAL SQ SCH (08:01)
[2018-09-22] MEDS: DOCUSATE 100 MG CAP PO SCH (08:01)
[2018-09-22] MEDS: GABAPENTIN 100 MG CAP PO SCH (08:01)
--- NOTE | 2018-09-22 09:16 | CONS ---
CONSULTATION DATE OF SERVICE: 09/20/2018 REASON FOR CONSULTATION: Bilateral feet or ankle cellulitis. HISTORY OF PRESENT ILLNESS: The patient is an 83-year-old female with past medical history significant for gout presenting to the ER at [facility] yesterday with chief complaints of pain in the bilateral feet area and inability to walk on it. The patient's symptoms have been going on for about 7 days. Apparently started on the her left side came to subsequently involving both bilateral ankle area mostly with pain to the lateral side with minimal erythema. Patient describing the pain to be more of a sharp and throbbing in nature almost 10 out of 10 when severe with no significant radiation of the pain. The patient did have mild erythema to the bilateral lateral ankle area, which is warm to touch. The patient denies high-grade fever, rigors and chills. With persistent pain and inability to walk because of the pain she presented to the [facility] ER. The patient did have x-rays of the foot which did not show any acute bony changes. The patient did have a low-grade fever of 99.9 to 100.1 to 100.6 today. The patient did have elevated white count 15.3, repeat is 10.7 and also elevated liver enzymes. The patient was started on vancomycin and Zosyn here in the hospital. Infectious Disease was consulted for further recommendation regarding antibiotic therapy. REVIEW OF SYSTEMS: Positive points have been mentioned in HPI. Rest of the 14 systems has been negative. PAST MEDICAL HISTORY: , hyperlipidemia, hypertension, osteoarthritis, hypothyroidism and gout. PAST SURGICAL HISTORY: Appendectomy, cholecystectomy, hysterectomy, bilateral total knee replacement, breast surgery and krista placed in right humerus. SOCIAL HISTORY: Remote history of smoking. Socially drinks. No drug use. FAMILY HISTORY: Mother alcoholic and had stomach ulcer. Sister with DVT. AICD. Father with history of cancer and dementia. ALLERGIES: Allergies to OXYBUTYNIN and CODEINE. MEDICATIONS: Medications include the patient is currently on Tylenol, Zyloprim, aspirin, [place] D, Zosyn, vancomycin, Colace, Neurontin, heparin, Dilaudid, NovoLog, Mag oxide, Theragran, Narcan, Zofran, Protonix. PHYSICAL EXAMINATION: On examination, blood pressure 146/56, pulse of 100, temperature of 100.6. She is 95% on room air. General description is an elderly female lying in bed in no distress. No tachypnea or accessory muscle of respiration use. HEENT examination shows no pallor. No scleral icterus. Oral mucous membrane is dry. No pharyngeal erythema or thrush. NECK; Trachea is central. No thyromegaly. LUNGS: Unlabored breathing: Clear to auscultation. No wheeze or crackle. HEART: S1, S2. Regular rate and rhythm. ABDOMEN: Soft, no tenderness. No guarding or rigidity. EXTREMITIES: No edema of feet: EXAMINATION OF MUSCULOSKELETAL AREA: The bilateral lateral ankle area did have minimal erythema, warm to touch and tender. No skin breakdown or any drainage. SKIN EXAMINATION: No rash or mass palpable. NEUROLOGICALLY: Patient is awake, alert, oriented x3. Mood and affect normal. LABS: Hemoglobin is 13.1, white count 15.3 down to 10.7 today with a BUN of 22, creatinine 1.0. Liver enzymes mildly elevated. has been negative. X-ray negative for any bony changes. Ultrasound of the leg was negative for any DVT. DIAGNOSTIC IMPRESSION AND PLAN: Patient admitted to the hospital and did have a fever and elevated white count in this patient noted to have pain to the bilateral lateral ankle area with erythema in this patient who did have a history of gouty arthritis. Suspicion is high for acute gouty arthritis be very unusual to have symmetrical cellulitis on the bilateral ankle area though bilateral cellulitis not entirely excluded likely from a gram-positive skin shirley. PLAN: 1. Discontinue vancomycin to decrease risk of nephrotoxicity as well as Zosyn. 2. We will add cefazolin 2 grams q.8 hours. 3. We will discontinue the allopurinol, start the patient on colchicine. 4. Recommend Ortho evaluation with possible aspirate of the joint with fluid sent both for Gram stain culture as well as crystals. 5. We will follow on clinical condition and further adjust medication if needed. Family was present at bedside. Their questions were answered. MMODL / IJN: [id number] /
[2018-09-22 09:43] LABS: Basophils % (A) 0 %; Eosinophils % (A) 0 %; HCT 42.1 % (34.0-46.0); HGB 13.5 gm/dL (11.4-16.0); Lymphocytes # (A) 1.1 k/uL (1.0-4.8); Lymphocytes % (A) 8 %; MCH 27.4 pg (25.0-35.0); MCV 85.6 fL (80.0-100.0); Mean Platelet Volume 7.1; Monocytes # (A) 0.4 k/uL (0-1.0); Monocytes % (A) 3 %; Neutrophils # (A) 11.8 k/uL (1.3-7.7); Neutrophils % (A) 88 %; Platelet Count 358 k/uL (150-450); RBC 4.92 m/uL (3.80-5.40); RDW 13.3 % (11.5-15.5); WBC 13.3 k/uL (3.8-10.6)
[2018-09-22 10:12] LABS: Albumin 3.6 g/dL (3.5-5.0); Calcium 9.5 mg/dL (8.4-10.2); Potassium 4.1 mmol/L (3.5-5.1); Total Bilirubin 0.6 mg/dL (0.2-1.3); Total Protein 6.7 g/dL (6.3-8.2)
--- NOTE | 2018-09-22 11:21 | P.CNOR ---
History of Present Illness - [facility] Consult date: 09/22/18 Requesting physician: Rambo Palacio Consult reason: joint pain History of present illness: Patient is a pleasant 83-year-old female seen at bedside this morning in consultation for bilateral foot pain. She states she's had a history of gout in the past and had been previously on allopurinol. She's had an episode in the past which she's had bilateral foot pain, redness and swelling where she was unable to walk for 10 days. This current episode is very similar to that in the past and was admitted to the emergency department for further evaluation and management. She has been on IV antibiotics, gout medication and corticosteroid. She feels much improved today. She states the swelling and redness has improved. She is currently denying fever or chills, numbness, tingling, calf pain or other. Review of Systems All systems: negative Constitutional: Denies chills, Denies fever Eyes: denies blurred vision, denies pain Ears, nose, mouth and throat: Denies headache, Denies sore throat Cardiovascular: Denies chest pain, Denies shortness of breath Respiratory: Denies cough Gastrointestinal: Denies abdominal pain, Denies diarrhea, Denies nausea, Denies vomiting Genitourinary: Denies dysuria, Denies hematuria Musculoskeletal: Denies myalgias Integumentary: Denies pruritus, Denies rash Neurological: Denies numbness, Denies weakness Psychiatric: Denies anxiety, Denies depression Endocrine: Denies fatigue, Denies weight change Past Medical History Past Medical History: Eye Disorder, GERD/Reflux, Hearing Disorder / Deafness, Hyperlipidemia, Hypertension, Memory Impairment, Musculoskeletal Disorder, Osteoarthritis (OA), Skin Disorder, Thyroid Disorder Additional Past Medical History / Comment(s): SOB W/ ACTIVITY. VERTIGO. MAC DEGENERATION. GOUT. borderline diabetic, NEUROPATHY FEET. GETS YEAST IN SKIN FOLDS OCC. History of Any Multi-Drug Resistant Organisms: None Reported Past Surgical History: Appendectomy, Cholecystectomy, Hysterectomy, Joint Replacement Additional Past Surgical History / Comment(s): ROHAN TOTAL KNEES replaced. HX SURG BREAST INFECTION, krista placed in right humerus Past Anesthesia/Blood Transfusion Reactions: No Reported Reaction, Motion Sickness Past Psychological History: No Psychological Hx Reported Smoking Status: Former smoker Past Alcohol Use History: Occasional, Rare Past Drug Use History: None Reported - Past Family History Mother Additional Family Medical History / Comment(s): "alcoholic", and stomach ulcers Sister(s) Family Medical History: AICD/Pacemaker, Blood Disorder, Deep Vein Thrombosis ( DVT) Additional Family Medical History / Comment(s): one sis has afib & blood clots, one other sis has blood clots as well Father Family Medical History: Cancer, Dementia Medications and Allergies Home Medications Medication Instructions Recorded Confirmed Type Bisoprolol-Hctz 2.5-6.25 mg [Ziac 1 tab PO HS 12/12/14 09/19/18 History 2.5-6.25] Kelp 1 tab PO DAILY 12/12/14 09/19/18 History Vitamin B Complex 1 cap PO DAILY 12/12/14 09/19/18 History traMADol HCl [Ultram] 50 - 100 mg PO QID PRN 12/12/14 09/20/18 History Calcium Carbonate/Vitamin D3 1 tab PO DAILY 12/19/15 09/19/18 History [Calcium 600 + Vit D Tablet] Glucosam/Tk-Msm1/C/Fidel/Bosw 1 tab PO DAILY 12/19/15 09/19/18 History [Glucosamine-Chondroitin Tablet] Multivit-Min/Iron/Folic/Lutein 1 tab PO DAILY 12/19/15 09/19/18 History [Centrum Silver Women Tablet] Zinc 50 mg PO DAILY 12/19/15 09/19/18 History Allopurinol [Zyloprim] 100 mg PO DAILY 09/19/18 09/19/18 History Aspirin EC [Ecotrin Low Dose] 81 mg PO DAILY 09/19/18 09/19/18 History Gabapentin [Neurontin] 100 mg PO BID 09/19/18 09/19/18 History Magnesium 200 mg PO DAILY 09/19/18 09/19/18 History [place]-3 Fatty Acids [[place]-3] 1,000 mg PO DAILY 09/19/18 09/19/18 History Tumeric (Unknown Dose) 1 tab PO DAILY 09/19/18 09/19/18 History Allergies Allergy/AdvReac Type Severity Reaction Status Date / Time codeine Allergy Chest Pain Verified 09/19/18 18:34 oxybutynin chloride Allergy Abdominal Verified 09/19/18 18:34 [From Ditropan] Pain Physical Examination Inspection of bilateral lower extremities and feet shows resolving edema and erythema diffusely at both feet. There are no wounds or evidence of abscess or fluid collections. Both feet are warm to touch. There is adequate perfusion in all toes. There is 2+ dorsalis pedis pulse present both feet. She has active motor and sensation throughout both feet and toes. She has tenderness along the dorsolateral aspect of the left foot worse than the right. There is pain with end points passive range of motion of bilateral ankles. There are no bony deformities. The ankle and feet are ligamentously stable. The malleoli are nontender. Results X-rays of the feet ankle are negative for fracture, lesions, dislocation, or gas in the tissue. There are degenerative changes throughout both feet. - Labs Labs: Abnormal Lab Results - Last 24 Hours (Table) 09/21/18 09/21/18 09/22/18 Range/Units 17:11 20:19 07:08 WBC (3.8-10.6) k/uL Neutrophils # (1.3-7.7) k/uL BUN (7-17) mg/dL Glucose (74-99) mg/dL POC Glucose (mg/dL) 128 H 203 H 193 H (75-99) mg/dL AST (14-36) U/L ALT (9-52) U/L 09/22/18 09/22/18 Range/Units 08:26 08:26 WBC 13.3 H (3.8-10.6) k/uL Neutrophils # 11.8 H (1.3-7.7) k/uL BUN 22 H (7-17) mg/dL Glucose 174 H (74-99) mg/dL POC Glucose (mg/dL) (75-99) mg/dL AST 56 H (14-36) U/L ALT 92 H (9-52) U/L Microbiology - Last 24 Hours (Table) 09/21/18 00:32 Blood Culture - Preliminary Blood No Growth after 24 hours 09/19/18 19:16 Blood Culture - Preliminary Blood No Growth after 48 hours H & H 09/19/18 09/20/18 09/21/18 Range/Units 20:21 07:21 08:43 Hgb 14.3 13.1 13.5 (11.4-16.0) gm/dL Hct 44.4 40.4 42.3 (34.0-46.0) % 09/22/18 Range/Units 08:26 Hgb 13.5 (11.4-16.0) gm/dL Hct 42.1 (34.0-46.0) % Result Diagrams: 09/22/18 08:26 09/22/18 08:26 - Diagnostic results Ankle/Foot x-ray: report reviewed, image reviewed Assessment and Plan (1) Gout Current Visit: Yes Status: Acute Code(s): M10.9 - GOUT, UNSPECIFIED SNOMED Code(s): 90737695 (2) Foot pain, bilateral Narrative/Plan: Patient is much improved today. She has been on IV antibiotics and colchicine as well as a corticosteroid. Would recommend continuing this regimen as well as elevation. There are no plans for surgical intervention as there is no signs of local abscess or infection. Don't feel the risk of an intra-articular aspiration is warranted due to risk of causing possible septic joint. Would recommend continued treatment for presumed gout. She may follow up in our office in [address] Valdovinos for further evaluation and recommendations. Current Visit: Yes Status: Acute Code(s): M79.671 - PAIN IN RIGHT FOOT; M79.672 - PAIN IN LEFT FOOT SNOMED Code(s): 60036579 Time with Patient: Less than 30
[2018-09-22 12:16] LABS: Glucose,Whole Blood 188 mg/dL (75-99)
[2018-09-22] MEDS: MAGNESIUM OXIDE 400 MG TAB PO SCH (12:52)
[2018-09-22] MEDS: MULTIVITAMINS, THERA 1 EACH TAB PO SCH (12:53)
[2018-09-22] MEDS: CALCIUM CARB-VIT D 500MG-200UN 1 EACH TAB PO SCH (12:53)
[2018-09-22 13:07] VITALS: BP 129/77; RESP 16; TEMP 97.9
--- NOTE | 2018-09-22 14:07 | P.DS ---
Providers Date of admission: 09/19/18 21:56 Expected date of discharge: 09/22/18 Attending physician: Danii Mckeon Consults: 09/20/18 10:15 Consult Physician Routine Consulting Provider: Lorie Schmidt Consult Reason/Comments: Cellulitis Do you want consulting provider notified?: Yes 09/20/18 14:30 Consult Physician Routine Consulting Provider: Nestor Barrow Consult Reason/Comments: elevated liver enzymes Do you want consulting provider notified?: Yes 09/21/18 13:14 Consult Physician Routine Consulting Provider: Talat Alvarado Consult Reason/Comments: pain to right ankle, possible gout Do you want consulting provider notified?: Yes Primary care physician: Danii Mckeon [facility] Hospital Course: discharge diagnosis 1. Bilateral lower extremity erythema and edema. Foot x-ray completed showing osteoarthritis. No fracture. White blood cell elevated at 15.3. Patient started on IV vancomycin and Zosyn. Blood culture ordered. Venous Doppler completed showing no diagnostic evidence of DVT. Per infectious disease antibiotic has been changed to kefzol. Orthopedic services were also be consulted for possible gout and aspiration of right ankle per ID. Patient having low-grade temps. White count remains elevated at 13.4. Per orthopedic services aspiration not wanting at this time recommending continued treatment for presumed gout patient to follow-up one week with Dr. Valdovinos for further evaluation. Patient will be DC'd home on antibiotic Keflex and colchine 2. Borderline diabetic. Patient currently not on any diabetes medication. Hemoglobin A1c 6.2. In place patient on sliding scale insulin coverage 3. History of hyperlipidemia 4. History of essential hypertension 5. History of macular degeneration 6. History of memory impairment 7. History of osteoarthritis 8. Increased weakness. Will consult physical therapy and psychiatric social worker supervisor discharge planning 9. Elevated liver enzymes. AST 141, ALT 135 and total bili 2.2. Acetaminophen DC'd. Her ultrasound completed showing probable hepatic steatosis , hepatomegaly. Biliary dilation possibly due to postcholecytectomy change. Per GI services labs are improving continue to monitor. No further workup Hospital course This is a 83-year-old female patient presented to the hospital with complaints of bilateral feet swelling redness and pain. Patient reports pain originally started approximately 7 days ago and was in second toe on left foot over the the past 7 days spread to both feet making patient unable to tolerate weightbearing activity. Patient does reports she's had similar episode approximately 3 years ago that she believed was related to gout. Patient was told by her PCP this was likely not gout and more of a neuropathy episode at that time due to bilateral feet involvement. Patient denies any fevers or chills. Patient has past medical history of macular degeneration, GERD, hearing disorder, hyperlipidemia, hypertension, memory impairment, musculoskeletal disorder, osteoarthritis, thyroid disorder and neuropathy. Patient also reports she was told she was borderline diabetic. Patient currently not on any diabetes medication. Will order hemoglobin A1c. Foot x- ray completed showing osteoarthritis. No fracture. At this time will order venous Doppler study to rule out DVT. Patient started on Vanco and Zosyn for IV antibiotics. Infectious disease will be consulted. White blood cell is trending down. We'll consult physical therapy and social work for discharge planning due to increased weakness and immobility at home. At this time patient denies chest pain or shortness of breath. Patient denies nausea vomiting or diarrhea. Patient denies any urinary burning or frequency. On 09/21/2018 patient is currently resting in bed. Patient states she is still having significant discomfort to bilateral lower feet. Patient did have a low- grade temp of 100.6. Infectious disease is following. Patient is on Kefzol per ID. this time patient denies chest pain or shortness breath. Patient denies nausea, diarrhea. Patient denies any urinary burning or frequency. On 09/22/2018 patient is currently resting bed. Patient states she feels significantly improved. Patient was evaluated by physical therapy. Patient will be DC'd with order for walker. Patient was able to bear weight and walk to bathroom. Patient was evaluated by orthopedic services no plan for surgical intervention at this time. Per orthopedic service is presumed gout. Patient did present with elevated temperature and white blood cell count will DC patient on by mouth Keflex along with colcrys for gout. Patient to follow-up with PCP and orthopedic services. At this time patient denies chest pain or shortness breath. Patient denies nausea vomiting or diarrhea. Patient denies any urinary burning or frequency . I performed an examination of the patient and discussed their management with the Nurse Practitioner. I have reviewed the Nurse Practitioner's notes and agree with the documented findings and plan of care Patient Condition at Discharge: Stable Plan - Discharge Summary Discharge Rx Participant: No New Discharge Prescriptions: No Action Bisoprolol-Hctz 2.5-6.25 mg [Ziac 2.5-6.25] 1 tab PO HS traMADol HCl [Ultram] 50 - 100 mg PO QID PRN PRN Reason: Pain Control Vitamin B Complex 1 cap PO DAILY Kelp 1 tab PO DAILY Calcium Carbonate/Vitamin D3 [Calcium 600 + Vit D Tablet] 1 tab PO DAILY Glucosam/Tk-Msm1/C/Fidel/Bosw [Glucosamine-Chondroitin Tablet] 1 tab PO DAILY Multivit-Min/Iron/Folic/Lutein [Centrum Silver Women Tablet] 1 tab PO DAILY Zinc 50 mg PO DAILY Gabapentin [Neurontin] 100 mg PO BID [place]-3 Fatty Acids [[place]-3] 1,000 mg PO DAILY Magnesium 200 mg PO DAILY Allopurinol [Zyloprim] 100 mg PO DAILY Tumeric (Unknown Dose) 1 tab PO DAILY Aspirin EC [Ecotrin Low Dose] 81 mg PO DAILY Discharge Medication List Bisoprolol-Hctz 2.5-6.25 mg [Ziac 2.5-6.25] 1 tab PO HS 12/12/14 [History] Kelp 1 tab PO DAILY 12/12/14 [History] Vitamin B Complex 1 cap PO DAILY 12/12/14 [History] traMADol HCl [Ultram] 50 - 100 mg PO QID PRN 12/12/14 [History] Calcium Carbonate/Vitamin D3 [Calcium 600 + Vit D Tablet] 1 tab PO DAILY [History] Glucosam/Tk-Msm1/C/Fidel/Bosw [Glucosamine-Chondroitin Tablet] 1 tab PO DAILY 12/19/15 [History] Multivit-Min/Iron/Folic/Lutein [Centrum Silver Women Tablet] 1 tab PO DAILY 11/30 [History] Zinc 50 mg PO DAILY 12/19/15 [History] Allopurinol [Zyloprim] 100 mg PO DAILY 09/19/18 [History] Aspirin EC [Ecotrin Low Dose] 81 mg PO DAILY 09/19/18 [History] Gabapentin [Neurontin] 100 mg PO BID 09/19/18 [History] Magnesium 200 mg PO DAILY 09/19/18 [History] [place]-3 Fatty Acids [[place]-3] 1,000 mg PO DAILY 09/19/18 [History] Tumeric (Unknown Dose) 1 tab PO DAILY 09/19/18 [History] Follow up Appointment(s)/Referral(s): Danii Mckeon MD [Primary Care Provider] - 1-2 days Tani Valdovinos MD [Medical Doctor] - 1 Week Care Plan Goals (MU): home meds in pharmacy please get for patient before discharge, slip for pickup is in clear folder in chart
--- NOTE | 2018-09-22 14:42 | P.PN ---
Subjective Progress Note Date: 09/22/18 Principal diagnosis: Transaminitis LFTs improved. Total bilirubin 0.6. AST 56. ALT 92. AP 102. Denies abdominal pain. Objective - Vital Signs Vital signs: Vital Signs Temp 97.9 F 09/22/18 13:00 Pulse 80 09/22/18 13:00 Resp 16 09/22/18 13:00 BP 129/77 09/22/18 13:00 Pulse Ox 93 L 09/22/18 13:00 Intake & Output 09/21/18 09/22/18 09/22/18 18:59 06:59 18:59 Intake Total 100 1080 Balance 100 1080 Intake: Intake, IV Titration 100 Amount Piperacillin-Tazobactam 3 100 .375 gm In Sodium Chloride 0.9% 100 ml @ 25 mls/hr IVPB Q8HR [facility] Rx# :[id number] Oral 1080 Other: Voiding Method Bedside Commode Bedside Commode Toilet Bedpan Bedpan # Voids 5 # Bowel Movements 3 - Exam General appearance: The patient is alert, oriented, in no acute distress. HET: Head is normocephalic and atraumatic. Pupils are equal and reactive. Oropharynx is clear without lesions. Neck: Supple without lymphadenopathy. Trachea midline. Heart: S1 S2. Regular rate and rhythm. Lungs: No crackles or wheezes are heard. Abdomen: Soft, nontender, nondistended with bowel sounds. No peritoneal signs. No palpable organomegaly or masses. Neurological: No focal deficits. Strength and sensation are grossly intact. - Labs CBC & Chem 7: 09/22/18 08:26 09/22/18 08:26 Labs: Abnormal Lab Results - Last 24 Hours (Table) 09/21/18 09/21/18 09/22/18 Range/Units 17:11 20:19 07:08 WBC (3.8-10.6) k/uL Neutrophils # (1.3-7.7) k/uL BUN (7-17) mg/dL Glucose (74-99) mg/dL POC Glucose (mg/dL) 128 H 203 H 193 H (75-99) mg/dL AST (14-36) U/L ALT (9-52) U/L 09/22/18 09/22/18 09/22/18 Range/Units 08:26 08:26 12:15 WBC 13.3 H (3.8-10.6) k/uL Neutrophils # 11.8 H (1.3-7.7) k/uL BUN 22 H (7-17) mg/dL Glucose 174 H (74-99) mg/dL POC Glucose (mg/dL) 188 H (75-99) mg/dL AST 56 H (14-36) U/L ALT 92 H (9-52) U/L Microbiology - Last 24 Hours (Table) 09/21/18 00:32 Blood Culture - Preliminary Blood No Growth after 24 hours 09/19/18 19:16 Blood Culture - Preliminary Blood No Growth after 48 hours Assessment and Plan (1) Transaminitis Narrative/Plan: 83-year-old admitted with bilateral foot pain erythema cellulitis with transaminitis clinically improving with underlying history of nonalcoholic fatty liver disease hepatic steatosis. Current Visit: Yes Status: Acute Code(s): R74.0 - NONSPEC ELEV OF LEVELS OF TRANSAMNS & LACTIC ACID DEHYDRGNSE SNOMED Code(s): 862862845 (2) Nonalcoholic fatty liver disease Current Visit: Yes Status: Acute Code(s): K76.0 - FATTY (CHANGE OF) LIVER, NOT ELSEWHERE CLASSIFIED SNOMED Code(s): 842972739 (3) Hepatic steatosis Current Visit: Yes Status: Acute Code(s): K76.0 - FATTY (CHANGE OF) LIVER, NOT ELSEWHERE CLASSIFIED SNOMED Code(s): 848592070 Plan: 1. Continue symptomatic supportive measures. No further workup from a GI standpoint. We'll follow as needed. Assessment and plan a care discussed with Dr. Barrow
--- NOTE | 2018-09-22 17:35 | PN ---
PROGRESS NOTE DATE OF SERVICE: 09/22/2018. REASON FOR FOLLOWUP: Bilateral ankle likely gouty arthritis, less likely cellulitis. INTERVAL HISTORY: The patient is currently afebrile. She is feeling better. The patient pain to the bilateral lateral ankle area has improved. The patient denies having any chest pain. No shortness of breath or cough. No abdominal pain or any diarrhea. PHYSICAL EXAMINATION: Blood pressure is 129/77 with a pulse of 80, temperature 97.9. She is 93% on room air. General description is an elderly female up in the room in no distress. Respiratory system: Unlabored breathing. Clear to auscultation anteriorly. Heart S1, S2. Regular rate and rhythm. Abdomen soft no tenderness. Bilateral ankle area of redness has improved. Minimal swelling. No open wound or any drainage. LABS: Hemoglobin 13.5, white count 13.2, BUN of 22, creatinine 0.86. Blood culture has been negative. DIAGNOSTIC IMPRESSION AND PLAN: Patient with bilateral lateral ankle pain, swelling and redness more likely to acute arthritis. Clinically doubt cellulitis. The patient seemed to have responded to the colchicine and steroids. The patient has been instructed to be careful with high diet. May consider either a short course of oral Keflex or discontinue all together. Continue supportive care. MMODL / IJN: [id number] /
--- NOTE | 2018-09-24 09:31 | CDI ---
Documentation Clarification Form Date: 09/24/2018 8:24:00 AM From: Zohreh Lu Tracy Paz, Biological Technician Hours-8:30 am & 5 pm M-F Admit Date: 09/19/2018 9:56:00 PM Patient Name: Corina Craig Visit Number: [id number] Discharge Date: 09/22/2018 4:05:00 PM ATTENTION: The Clinical Documentation Specialists (CDI) and [facility] Coding Staff appreciate your assistance in clarifying documentation. Please respond to the clarification below the line at the bottom and electronically sign. The CDI & [facility] Coding staff will review the response and follow-up if needed. Please note: Queries are made part of the Legal Health Record. If you have any questions, please contact the author of this message via ITS. Dr. Danii Mckeon Cellulitis of the bilateral feet is documented in the H&P, PNs, Consult, EDNote , DS Patient history/risk factors: DM, Gout Clinical Indicators: WBC 15.3, 10.7. 13.4- T 99.9, 101.1, 99.1 Other Clinical Indicators: Pain, erythema Treatment: IV/PO abx Consults: Brayan PN 2/ documents 'clinicaly doubt cellulitis' In your professional opinion, can cellulitis be further specified as one of the following? Cellulits ruled in Cellulitis ruled out Cutaneous Abscess Cellulitis due to Diabetes Other, please specify: Unable to determine Infectious agent if known: Bacteria Virus Other, please specify: Unable to determine possible bacterial cellulitis MTDD
== END 2018-09-22 16:05 | disposition home or self-care (01) | DRG 603 ==
LOC: EC 17:46 → 3NMEDONC 21:56
PROVIDERS: ADMIT Internal Medicine; ATTEND Internal Medicine
DX: L03.115 Cellulitis of right lower limb (principal); E11.42 Type 2 diabetes mellitus with diabetic polyneuropathy; K76.0 Fatty (change of) liver, not elsewhere classified; B96.89 Other specified bacterial agents as the cause of diseases classified elsewhere; M10.9 Gout, unspecified; M19.90 Unspecified osteoarthritis, unspecified site; K21.9 Gastro-esophageal reflux disease without esophagitis; I10 Essential (primary) hypertension; H91.90 Unspecified hearing loss, unspecified ear; E78.5 Hyperlipidemia, unspecified; H35.30 Unspecified macular degeneration; R41.3 Other amnesia; M19.072 Primary osteoarthritis, left ankle and foot; M19.071 Primary osteoarthritis, right ankle and foot; E66.9 Obesity, unspecified; E07.9 Disorder of thyroid, unspecified; Z68.35 Body mass index [BMI] 35.0-35.9, adult; Z79.899 Other long term (current) drug therapy; Z79.82 Long term (current) use of aspirin; Z90.710 Acquired absence of both cervix and uterus; Z87.891 Personal history of nicotine dependence; Z90.49 Acquired absence of other specified parts of digestive tract; Z96.653 Presence of artificial knee joint, bilateral; Z88.5 Allergy status to narcotic agent; Z88.8 Allergy status to other drugs, medicaments and biological substances; Z80.9 Family history of malignant neoplasm, unspecified; Z82.0 Family history of epilepsy and other diseases of the nervous system; Z81.1 Family history of alcohol abuse and dependence; Z82.49 Family history of ischemic heart disease and other diseases of the circulatory system
CPT/HCPCS: 36415; 76705; 80053; 80074; 82550; 82553; 83036; 83605; 83735; 84550; 85025; 86140; 87040; 93970; 96360; 96361; 99284

== ENCOUNTER → 2020-02-29 | Outpatient (CLI) | payer MEDICARE, BC ==
--- NOTE | 2020-02-29 14:04 | CT ---
EXAMINATION TYPE: CT hip RT wo con DATE OF EXAM: 02/29/2020 COMPARISON: None HISTORY: Fall, Rt hip pain CT DLP: 428.3 mGycm Automated exposure control for dose reduction was used. Unenhanced CT of the right hip was performed with bone and soft tissue window settings submitted. 3-D reconstruction was obtained at a separate wo rkstation. FINDINGS: There is a mildly comminuted mildly displaced fracture involving the greater trochanter of the right hip. Displacement is approximately 4 mm. No additional fractures are identified within the field-of-v iew. Femoral neck is intact. Mild degenerative narrowing right hip joint space. Degenerative changes of the osseous pubis. Mild soft tissue edema noted. No pelvic masses seen. Changes of prior hysterect jared. Sigmoid diverticulosis. IMPRESSION: There is a mildly comminuted mildly displaced fracture involving the greater trochanter of the right hip.
== END | disposition home or self-care (01) ==
LOC: RADCTMAIN 12:01
PROVIDERS: ATTEND Orthopaedic Surgery
DX: S72.111A Displaced fracture of greater trochanter of right femur, initial encounter for closed fracture (principal)

== ENCOUNTER → 2022-03-04 | Outpatient (CLI) | payer MEDICARE, BC ==
[2022-03-04 17:50] LABS: Basophils # (A) 0.07 X 10*3/uL (0.00-0.10); Basophils % (A) 0.7 %; Eosinophils # (A) 0.14 X 10*3/uL (0.04-0.35); Eosinophils % (A) 1.4 %; HCT 47.8 % (37.2-46.3); HGB 15.6 g/dL (12.0-15.0); Immature Grans, Automated 0.2 %; Lymphocytes # (A) 1.62 X 10*3/uL (0.90-5.00); Lymphocytes % (A) 16.2 %; MCH 29.1 pg (27.0-32.0); MCHC 32.6 g/dL (32.0-37.0); Mean Platelet Volume 10.9 fL (9.5-12.2); Monocytes # (A) 0.68 X 10*3/uL (0.20-1.00); Monocytes % (A) 6.8 %; NRBC Per 100 WBC 0 /100 WBCS (0.0-0.0); Neutrophils % (A) 74.7 %; Platelet Count 192 X 10*3/uL (140-440); RBC 5.37 X 10*6/uL (4.10-5.20); RDW 14.7 % (11.5-14.5); WBC 10.03 X 10*3/uL (4.50-10.00)
[2022-03-04 18:00] LABS: African American GFR (CKD) 56.6 (60.0-200.0); Albumin 4.5 g/dL (3.8-4.9); Albumin/Globulin Ratio 1.8 (1.60-3.17); Anion Gap 13.9 mmol/L (10.00-18.00); BUN/Creat Ratio 19.03 Ratio (12.00-20.00); Blood Urea Nitrogen 19.6 mg/dL (9.0-27.0); Calcium 9.8 mg/dL (8.7-10.3); Carbon Dioxide 21.2 mmol/L (20.0-27.5); Globulin 2.5 g/dL (1.6-3.3); Non-African American GFR(CKD) 48.8 (60.0-200.0); Potassium 4.3 mmol/L (3.5-5.5); Total Bilirubin 0.6 mg/dL (0.30-1.20); Total Protein 7.1 g/dL (6.2-8.2)
== END | disposition home or self-care (01) ==
LOC: LABWHC1 12:34
PROVIDERS: ATTEND Dermatology
DX: L40.0 Psoriasis vulgaris (principal)
CPT/HCPCS: 36415; 80053; 85025

== ENCOUNTER → 2022-05-07 | Outpatient (CLI) | payer MEDICARE, BC ==
--- NOTE | 2022-05-07 16:04 | MR ---
EXAMINATION TYPE: MR brain wo/w con DATE OF EXAM: 05/07/2022 COMPARISON: NONE HISTORY: 86-year-old female G45.9 Passed out, possible TIA. TECHNIQUE: Multiplanar, multisequence images of the brain and brainstem were acquired before and aft er administration of 8 mL IV Gadavist. Diffusion weighted imaging is performed. FINDINGS: No evidence for acute infarction, hemorrhage, mass, mass effect, midline shift, herniation, effacemen t of basal cisterns, or extra-axial fluid collection. Smaller size of the right lateral ventricle compared to the left likely congenital variation. There i s mild to moderate cerebral cortical volume loss. Prominent perivascular spaces are present throughou t. Major intracranial flow voids are intact. T2/FLAIR weighted sequences show mild patchy bright signal change in the bilateral paramedian candie. A dditional mild patchy and confluent right white matter change periventricular regions and adjacent de ep white matter regions. A few foci are present in the bifrontal subcortical regions. Midline structures demonstrate normal morphology. The craniocervical junction is normal. Post contrast images demonstrate no evidence of pathologic enhancement. Dural venous sinuses are pat ent. Mild mucosal thickening ethmoid air cells. Lobes are intact. Benign hyperostosis frontalis interna. IMPRESSION: 1. No acute intracranial abnormality seen. 2. Mild to moderate cerebral cortical atrophy and chronic small vessel ischemic disease. 3. No enhancing intracranial lesions. 4. Mild chronic ethmoid sinus disease.
== END | disposition home or self-care (01) ==
LOC: RADMRIMAIN 14:33
PROVIDERS: ATTEND Internal Medicine
DX: G45.9 Transient cerebral ischemic attack, unspecified (principal); G31.9 Degenerative disease of nervous system, unspecified; I67.82 Cerebral ischemia; J32.2 Chronic ethmoidal sinusitis
CPT/HCPCS: 70553; A9585

== ENCOUNTER → 2022-06-03 | Outpatient (CLI) | payer MEDICARE, BC ==
[2022-06-03 14:16] LABS: Basophils # (A) 0.08 X 10*3/uL (0.00-0.10); Eosinophils # (A) 0.14 X 10*3/uL (0.04-0.35); Eosinophils % (A) 1.7 %; HCT 48.2 % (37.2-46.3); HGB 15.5 g/dL (12.0-15.0); Immature Grans, Automated 0.4 %; Lymphocytes # (A) 1.53 X 10*3/uL (0.90-5.00); Lymphocytes % (A) 18.8 %; MCH 29.1 pg (27.0-32.0); MCHC 32.2 g/dL (32.0-37.0); MCV 90.6 fL (80.0-97.0); Mean Platelet Volume 10.7 fL (9.5-12.2); Monocytes # (A) 0.64 X 10*3/uL (0.20-1.00); Monocytes % (A) 7.9 %; NRBC Per 100 WBC 0 /100 WBCS (0.0-0.0); Neutrophils % (A) 70.2 %; Platelet Count 201 X 10*3/uL (140-440); RBC 5.32 X 10*6/uL (4.10-5.20); RDW 13.9 % (11.5-14.5); WBC 8.12 X 10*3/uL (4.50-10.00)
[2022-06-04 01:32] LABS: Albumin 4.3 g/dL (3.8-4.9); Albumin/Globulin Ratio 1.91 (1.60-3.17); Anion Gap 18.6 mmol/L (10.00-18.00); BUN/Creat Ratio 17.03 Ratio (12.00-20.00); Blood Urea Nitrogen 17.2 mg/dL (9.0-27.0); Calcium 9.5 mg/dL (8.7-10.3); Carbon Dioxide 17.4 mmol/L (20.0-27.5); Globulin 2.3 g/dL (1.6-3.3); Potassium 4.4 mmol/L (3.5-5.5); Total Bilirubin 0.7 mg/dL (0.30-1.20); Total Protein 6.6 g/dL (6.2-8.2)
== END | disposition home or self-care (01) ==
LOC: LABWHC1 10:11
PROVIDERS: ATTEND Dermatology
DX: L40.0 Psoriasis vulgaris (principal)
CPT/HCPCS: 36415; 80053; 85025

== ENCOUNTER → 2022-06-11 | Outpatient (CLI) | payer MEDICARE, BC ==
[2022-06-11 18:34] LABS: Basophils # (A) 0.06 X 10*3/uL (0.00-0.10); Basophils % (A) 0.7 %; Eosinophils # (A) 0.15 X 10*3/uL (0.04-0.35); Eosinophils % (A) 1.8 %; HCT 45.3 % (37.2-46.3); HGB 15.2 g/dL (12.0-15.0); Immature Grans, Automated 0.6 %; Lymphocytes # (A) 1.86 X 10*3/uL (0.90-5.00); Lymphocytes % (A) 22.1 %; MCH 29.2 pg (27.0-32.0); MCHC 33.6 g/dL (32.0-37.0); MCV 87.1 fL (80.0-97.0); Mean Platelet Volume 10.5 fL (9.5-12.2); Monocytes # (A) 0.74 X 10*3/uL (0.20-1.00); Monocytes % (A) 8.8 %; NRBC Per 100 WBC 0 /100 WBCS (0.0-0.0); Neutrophils # (A) 5.57 X 10*3/uL (1.80-7.70); Platelet Count 211 X 10*3/uL (140-440); RDW 14.1 % (11.5-14.5); WBC 8.43 X 10*3/uL (4.50-10.00)
[2022-06-11 18:57] LABS: African American GFR (CKD) 61.2 (60.0-200.0); Albumin 4.2 g/dL (3.8-4.9); Albumin/Globulin Ratio 1.53 (1.60-3.17); Anion Gap 13.1 mmol/L (10.00-18.00); BUN/Creat Ratio 17.91 Ratio (12.00-20.00); Blood Urea Nitrogen 17.3 mg/dL (9.0-27.0); Calcium 9.7 mg/dL (8.7-10.3); Carbon Dioxide 22.6 mmol/L (20.0-27.5); Globulin 2.8 g/dL (1.6-3.3); Non-African American GFR(CKD) 52.8 (60.0-200.0); Potassium 4.1 mmol/L (3.5-5.5); Total Bilirubin 0.6 mg/dL (0.30-1.20)
== END | disposition home or self-care (01) ==
LOC: LABWHC1 11:23
PROVIDERS: ATTEND Dermatology
DX: L40.0 Psoriasis vulgaris (principal)
CPT/HCPCS: 36415; 80053; 85025